=== PATIENT | male | born 1940 | race African-American/Black ===

== ENCOUNTER 2016-05-24 15:14 | Emergency (ER) | payer BC ==
[~2016-05-24] VITALS: Ht 180.3 cm; Wt 123.0 kg
[~2016-05-24 15:14] MED LIST: ALLO300 PO; APIX5 PO; ASPI81 PO; B COTAB3 PO; CALTTAB5 PO; CHEL50TA PO; CLON.3T TD; CO Q100C9 PO; CRES10TA PO; FISH120014 PO; FURO40TA PO; GARL500C2 PO; GLIM1TAB PO; HUMALOGP SQ; INSU1INJ14 SQ; LISI-366 PO; NEBI20 PO; NEXI40CA PO; PARI1CAP PO; TAB-TAB PO; TAMS0.4C67 PO; [UNRECOGNIZED DRUG - CODE] PO
[2016-05-24 15:19] VITALS: BP 158/77; PULSE 69; RESP 18; TEMP 98.2; O2SAT 94
--- NOTE | 2016-05-24 15:29 | PD ---
HPI . congestion, cold, cough x 1 month, worse over 2 days Chief Complaint: Cold / Flu Symptoms Time Seen by Provider: 15:28 Travel History International Travel<30 days: No Contact w/Intl Traveler<30days: No Traveled to known affect area: No History of Present Illness HPI 76-year-old male with multiple medical problems including hypertension, diabetes , hyperlipidemia, chronic kidney disease, GERD, recent pulmonary emboli now on Eliquis here with complaints of chest, cold and congestion for over a month. Patient tells me that he has had intermittent cold symptoms for over one month, but over the last 2 days his congestion has worsened. He does experience shortness of breath occasionally, but with the congestion it is more frequent and he decided to come to the emergency for further evaluation. He reports that his has also had the same symptoms and was placed on antibiotics. He denies any fever or chills. He is compliant with his anticoagulant. He is followed by his PCP. He was recently seen in the hospital for chest pain and workup did not reveal any new cardiac findings. There was some mention about a repeat CTA, however it was not done. Instead his Eliquis dose was increased. He denies any recent travel and has since seen his PCP. 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 He does have a PCP, gizzard skin remover, and moisture machine tender. PFSH Past Medical History Hx Anticoagulant Therapy: Yes (ELIQUIS AND BABY ASA) Arthritis: Yes (in knees pt states he had gout) Asthma: No Anxiety: No Depression: No Heart Rhythm Problems: Yes (HEART MURMUR) Cancer: No Cardiovascular Problems: Yes (HTN) High Cholesterol: Yes Chest Pain: No Congestive Heart Failure: No COPD: No Diabetes: Yes Diminished Hearing: Yes ([place] BAND) Endocrine: Yes Gastrointestinal Disorders: Yes GERD: Yes Gout: Yes Genitourinary: Yes (RENAL INSUFFICIENCY stage 3) Hiatal Hernia: No Hypertension: Yes Immune Disorder: No Implanted Vascular Access Dvce: No Kidney Stones: No Musculoskeletal: Yes Neurologic: Yes Psychiatric: No Reproductive: No Respiratory: Yes Integumentary: Yes (gout/arthritis) Renal Failure: No Shingles: Yes Sleep Apnea: No Thyroid Disease: No Triglycerides - High: Yes Ulcer: Yes (bleeding ulcer) Past Surgical History Abdominal Surgery: Yes (APPENDECTOMY) AICD: No Appendectomy: Yes Arteriovenous Shunt: No Cardiac Surgery: No Ear Surgery: No Endocrine Surgery: No Eye Surgery: No Genitourinary Surgery: Yes (vascectomy) Gynecologic Surgery: No Insulin Pump: No Joint Replacement: No Neurologic Surgery: No Oral Surgery: No Pacemaker: No Thoracic Surgery: No Other Surgery: Yes (ENDOSCOPY FOR BLEEDING ULCERS) Social History Alcohol Use: Yes ("VERY RARELY") Tobacco Use: No (QUIT AGE 45 "NOT A HEAVY SMOKER") Substance Use: No Allergies-Medications (Allergen,Severity, Reaction): Coded Allergies: No Known Allergies (Unverified , 05/24/16) Reported Meds & Prescriptions Reported Meds & Active Scripts Active Eliquis (Apixaban) 5 Mg Tab 5 Mg PO BID Reported Tresiba Flextouch (Insulin Degludec) 100 Unit/Ml Inj 120 SQ HS Zinc (Zinc Gluconate) 50 Mg Tab 50 Mg PO HS Calcium (Calcium Carbonate) 600 Mg Tab 600 Mg PO HS Glimepiride 1 Mg Tab 1 Mg PO DAILY Bystolic 20 Mg Tab (Nebivolol) 20 Mg Tab 20 Mg PO DAILY Garlic Oil 500 (Garlic) 500 Mg Cap 1,000 Mg PO DAILY Fish Oil ([place]-3 Fatty Acids) 1,200 Mg Cap PO BID Levitra (Vardenafil HCl) 2.5 Mg Tab 0 PO DIRECTED PRN UNKNOWN DOSE Humalog 10 ml vial (Insulin Human Lispro) 100 Units/Ml Inj 13 Units SQ TIDAC Co Q 10 (Coenzyme Q10) 100 Mg Cap 100 Mg PO DAILY B Complex (Vitamin B Complex) Tab 1 Cap PO DAILY Aspirin 81 Mg Tab 81 Mg PO DAILY Multivitamin (Multivitamins) 1 Tab Tab 1 Tab PO DAILY Nexium (Esomeprazole Magnesium) 40 Mg Cap 40 Mg PO DAILY Crestor (Rosuvastatin Calcium) 10 Mg Tab 10 Mg PO DAILY Zyloprim 300 Mg Tab (Allopurinol) 300 Mg Tab 100 Mg PO DAILY Lisinopril 40 mg (Lisinopril) 40 Mg Tab 40 Mg PO BID Furosemide 40 Mg Tab 40 Mg PO DAILY [id number] (Clonidine Hcl) 0.3 Mg/24 Hr Dis 0.3 Mg TD WEEKLY Review of Systems General / Constitutional: No: Fever Eyes: No: Visual changes HENT: Positive: Congestion, No: Headaches Cardiovascular: No: Chest Pain or Discomfort Respiratory: Positive: Shortness of Breath Gastrointestinal: No: Abdominal Pain Genitourinary: No: Dysuria Musculoskeletal: No: Pain Skin: No Rash Neurologic: No: Weakness Psychiatric: No: Depression Endocrine: No: Polydipsia Hematologic/Lymphatic: No: Easy Bruising Physical Exam Narrative GENERAL: AAO x 3, no acute distress, Well-nourished, well-developed patient. SKIN: Warm and dry. No visible rashes or bruising. HEAD: Normocephalic and atraumatic. EYES: No scleral icterus. No injection or drainage. ENT: No nasal drainage noted. Mucous membranes pink. Airway patent. No posterior pharynx erythema, exudates or edema. NECK: Supple, trachea midline. No JVD. CARDIOVASCULAR: Regular rate and rhythm without murmurs, gallops, or rubs. RESPIRATORY: Breath sounds equally diminished bilaterally. No accessory muscle use. No rhonchi or rales. No wheezing. GASTROINTESTINAL: Abdomen soft, non-tender, nondistended. EXTREMITIES: No cyanosis. B/L edema in LE trace. stasis dermatitis in LE. BACK: Nontender without obvious deformity. No CVA tenderness. PSYCH: AAO x 3, normal affect. Data Data Last Documented VS Vital Signs Date Time Temp Pulse Resp B/P Pulse Ox O2 Delivery O2 Flow Rate FiO2 05/24/16 15:19 98.2 69 18 158/77 94 Orders Chest, Single Ap (05/24/16 15:33) Basic Metabolic Panel (Bmp) (05/24/16 15:33) Complete Blood Count With Diff (05/24/16 15:33) Iv Access Insert/Monitor (05/24/16 15:33) Sodium Chloride 0.9% Flush (Ns Flush) (05/24/16 15:45) Influenzae A/B Antigen (05/24/16 15:33) Coag Profile (05/24/16 15:33) Ct Pulmonary Angiogram (05/24/16 16:25) Sodium Chlorid 0.9% 500 Ml Inj (Ns 500 M (05/24/16 17:00) Iohexol 350 Inj (Omnipaque 350 Inj) (05/24/16 17:10) Labs Laboratory Tests Test 05/24/16 15:50 White Blood Count 7.6 TH/MM3 Red Blood Count 4.83 MIL/MM3 Hemoglobin 14.9 GM/DL Hematocrit 46.0 % Mean Corpuscular Volume 95.2 FL Mean Corpuscular Hemoglobin 30.7 PG Mean Corpuscular Hemoglobin 32.3 % Concent Red Cell Distribution Width 15.3 % Platelet Count 164 TH/MM3 Mean Platelet Volume 9.0 FL Neutrophils (%) (Auto) 68.2 % Lymphocytes (%) (Auto) 14.0 % Monocytes (%) (Auto) 10.5 % Eosinophils (%) (Auto) 6.3 % Basophils (%) (Auto) 1.0 % Neutrophils # (Auto) 5.1 TH/MM3 Lymphocytes # (Auto) 1.1 TH/MM3 Monocytes # (Auto) 0.8 TH/MM3 Eosinophils # (Auto) 0.5 TH/MM3 Basophils # (Auto) 0.1 TH/MM3 CBC Comment DIFF FINAL Differential Comment Prothrombin Time 12.0 SEC Prothromb Time International 1.1 RATIO Ratio Activated Partial 29.1 SEC Thromboplast Time Sodium Level 143 MEQ/L Potassium Level 4.4 MEQ/L Chloride Level 105 MEQ/L Carbon Dioxide Level 31.1 MEQ/L Anion Gap 7 MEQ/L Blood Urea Nitrogen 30 MG/DL Creatinine 1.80 MG/DL Estimat Glomerular Filtration 45 ML/MIN Rate Random Glucose 182 MG/DL Calcium Level 8.7 MG/DL MDM Medical Decision Making Medical Screen Exam Complete: Yes Emergency Medical Condition: Yes Medical Record Reviewed: Yes Differential Diagnosis URI, PNA, recurrent PE Narrative Course 76-year-old male with multiple medical problems including hypertension, diabetes , hyperlipidemia, chronic kidney disease, GERD, recent pulmonary emboli now on Eliquis here with complaints of chest, cold and congestion for over a month. Patient tells me that he has had intermittent cold symptoms for over one month, but over the last 2 days his congestion has worsened. He does experience shortness of breath occasionally, but with the congestion it is more frequent and he decided to come to the emergency for further evaluation. He reports that his has also had the same symptoms and was placed on antibiotics. He denies any fever or chills. He is compliant with his anticoagulant. He is followed by his PCP. He was recently seen in the hospital for chest pain and workup did not reveal any new cardiac findings. There was some mention about a repeat CTA, however it was not done. Instead his Eliquis dose was increased. He denies any recent travel and has since seen his PCP. 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 He does have a PCP, gizzard skin remover, and moisture machine tender. Patient seen and examined. Case discussed with Dr. Hoffman, who also examined the patient. Workup in progress. Labs ordered along [facility] CXR and influenza testing. Last 24 hours Impressions Chest X-Ray 05/24/16 1533 Signed Impressions: Service Date/Time: Tuesday, May 24, 2016 15:48 - CONCLUSION: 1. Borderline, wall compensated heart. 2. Minimal bibasilar atelectatic changes with stable elevation of the right hemidiaphragm. 3. Central pulmonary arteries are mildly prominent but stable possibly representing some degree of pulmonary hypertension. Tyrese Dutton MD Laboratory Tests Test 05/24/16 15:50 White Blood Count 7.6 TH/MM3 Red Blood Count 4.83 MIL/MM3 Hemoglobin 14.9 GM/DL Hematocrit 46.0 % Mean Corpuscular Volume 95.2 FL Mean Corpuscular Hemoglobin 30.7 PG Mean Corpuscular Hemoglobin 32.3 % Concent Red Cell Distribution Width 15.3 % Platelet Count 164 TH/MM3 Mean Platelet Volume 9.0 FL Neutrophils (%) (Auto) 68.2 % Lymphocytes (%) (Auto) 14.0 % Monocytes (%) (Auto) 10.5 % Eosinophils (%) (Auto) 6.3 % Basophils (%) (Auto) 1.0 % Neutrophils # (Auto) 5.1 TH/MM3 Lymphocytes # (Auto) 1.1 TH/MM3 Monocytes # (Auto) 0.8 TH/MM3 Eosinophils # (Auto) 0.5 TH/MM3 Basophils # (Auto) 0.1 TH/MM3 CBC Comment DIFF FINAL Differential Comment Prothrombin Time 12.0 SEC Prothromb Time International 1.1 RATIO Ratio Activated Partial 29.1 SEC Thromboplast Time Sodium Level 143 MEQ/L Potassium Level 4.4 MEQ/L Chloride Level 105 MEQ/L Carbon Dioxide Level 31.1 MEQ/L Anion Gap 7 MEQ/L Blood Urea Nitrogen 30 MG/DL Creatinine 1.80 MG/DL Estimat Glomerular Filtration 45 ML/MIN Rate Random Glucose 182 MG/DL Calcium Level 8.7 MG/DL CT angio negative for PE discussed with Dr. Hoffman, symptomatic treatment for viral syndrome. No Rx drugs needed as workup is negative. Recommend f/u with PCP. Patient verbalized understanding of instructions, questions were answered, and thanked me for their care. I advised them if their condition worsens, please return to the nearest emergency room for further care. Diagnosis Primary Impression: Viral infection Patient Instructions: General Instructions Additional Instructions: Please return to emergency department if your symptoms return or worsen. Follow up with your primary care provider. Take medications as prescribed. Tylenol or Motrin as needed for fever and pain. You can use Claritin or Zyrtec as needed for nasal congestion. Please follow-up with your primary care provider in the next 3-5 days. Med/Other Pt SpecificInfo: No Change to Meds Disposition: 01 DISCHARGE HOME Condition: Stable Yesi Singh May 24, 2016 15:28
[2016-05-24] MEDS ORDERED: SODIUM CHLORIDE 0.9% FLUSH 10 ML FLUSH IVF PRN (15:45)
--- NOTE | 2016-05-24 16:10 | RADHPO ---
EXAM DATE/TIME: 05/24/2016 15:48 [facility] COMPARISON: CHEST SINGLE AP, September 07, 2015, 9:55. INDICATIONS : Shortness of breath, chest congestion for 2 days MEDICAL HISTORY : None. SURGICAL HISTORY : None. ENCOUNTER: Initial ACUITY: 2 days PAIN SCORE: 0/10 LOCATION: Bilateral chest FINDINGS: A single view of the chest demonstrates stable elevation of the right hemidiaphragm. Minimal bibasila r atelectatic changes. Lungs otherwise clear. Heart size is borderline prominent but compensated. The re is some prominence of the central pulmonary arteries possibly representing some degree of pulmonar y hypertension. Osseous structures are intact with some degenerative spurring of the dorsal spine. CONCLUSION: 1. Borderline, wall compensated heart. 2. Minimal bibasilar atelectatic changes with stable elevation of the right hemidiaphragm. 3. Central pulmonary arteries are mildly prominent but stable possibly representing some degree of pu lmonary hypertension. Tyrese Dutton MD on May 24, 2016 at 16:05 Board Certified Radiologist. This report was verified electronically.
[2016-05-24 16:12] LABS: APTT (PATIENT) 29.1 SEC (24.3-30.1); INTERNATIONAL NORMALIZED RATIO 1.1 RATIO
[2016-05-24 16:26] LABS: AUTOMATED NEUTROPHIL # 5.1 TH/MM3 (1.8-7.7); BASOPHIL # 0.1 TH/MM3 (0-0.2); EOSINOPHIL # 0.5 TH/MM3 (0-0.4); EOSINOPHIL % 6.3 % (0.0-4.0); HEMO FLAGS DIFF FINAL; LYMPHOCYTE # 1.1 TH/MM3 (1.0-4.8); MEAN CELL VOLUME 95.2 FL (80.0-100.0); MEAN CORPUSCULAR HEMOGLOBIN 30.7 PG (27.0-34.0); MEAN CORPUSCULAR HGB CONC 32.3 % (32.0-36.0); MONO % 10.5 % (0.0-8.0); NEUT % 68.2 % (16.0-70.0); PLATELET COUNT 164 TH/MM3 (150-450); RED BLOOD COUNT 4.83 MIL/MM3 (4.50-5.90); RED CELL DISTRIBUTION WIDTH 15.3 % (11.6-17.2); WHITE BLOOD COUNT 7.6 TH/MM3 (4.0-11.0)
[2016-05-24 16:44] LABS: BICARBONATE 31.1 MEQ/L (21.0-32.0); POTASSIUM 4.4 MEQ/L (3.5-5.1)
[2016-05-24] MEDS ORDERED: SODIUM CHLORID 0.9% 500 ML INJ 500 ML IV ONE (17:00)
[2016-05-24] MEDS ORDERED: IOHEXOL 350 MG/ML 10 ML VIAL (for RAD DIAG) IV ONE (17:10)
--- NOTE | 2016-05-24 17:20 | RADHPO ---
EXAM DATE/TIME: 05/24/2016 16:56 [facility] COMPARISON: CT PULMONARY ANGIOGRAM, August 22, 2015, 21:17. INDICATIONS : Shortness of breath with congestion. IV CONTRAST: 65 cc Omnipaque 350 (iohexol) IV RADIATION DOSE: 21.57 CTDIvol (mGy) MEDICAL HISTORY : Hypertension. Pulmonary embolism. SURGICAL HISTORY : None. ENCOUNTER: Initial ACUITY: 2 days PAIN SCALE: 0/10 LOCATION: chest TECHNIQUE: Volumetric scanning of the chest was performed using a pulmonary embolism protocol MIP images were re constructed. Using automated exposure control and adjustment of the mA and/or kV according to patien t size, radiation dose was kept as low as reasonably achievable to obtain optimal diagnostic quality images. FINDINGS: PULMONARY ARTERIES: No filling defects are seen in the pulmonary arteries through the segmental level. LUNGS: There is elevation of the right diaphragm with atelectasis again noted in the right lung base. No chuck picious mass or nodule. PLEURAE: There is no pleural thickening or pleural effusion. MEDIASTINUM: There is good visualization of the great vessels of the middle mediastinum. No evidence of mediastin al or hilar adenopathy/mass. Coronary artery calcifications. MUSCULOSKELETAL: Within normal limits for patient age. MISCELLANEOUS: Gallstones CONCLUSION: No evidence of pulmonary embolism Kvng Munoz MD on May 24, 2016 at 17:13 Board Certified Radiologist. This report was verified electronically.
[2016-05-24 17:46] VITALS: BP 152/76; PULSE 58; RESP 22; O2SAT 92
== END 2016-05-24 18:08 | disposition home or self-care (01) ==
LOC: PHEFT 15:14
DX: B34.9 Viral infection, unspecified (principal); R06.02 Shortness of breath; I12.9 Hypertensive chronic kidney disease with stage 1 through stage 4 chronic kidney disease, or unspecified chronic kidney disease; N18.9 Chronic kidney disease, unspecified; E11.9 Type 2 diabetes mellitus without complications; E78.5 Hyperlipidemia, unspecified; E78.00 Pure hypercholesterolemia, unspecified; K21.9 Gastro-esophageal reflux disease without esophagitis; Z86.711 Personal history of pulmonary embolism; Z79.01 Long term (current) use of anticoagulants; Z87.891 Personal history of nicotine dependence
CPT/HCPCS: 71010; 71275; 80048; 85025; 85610; 85730; 87804; 96360; 99284; J7040; Q9967

== ENCOUNTER 2017-02-19 13:08 | Inpatient (IN) | payer BC ==
[~2017-02-19] VITALS: Ht 180.3 cm; Wt 124.5 kg
[~2017-02-19 13:08] MED LIST changes: -TAMS0.4C67 PO
[2017-02-19 13:14] VITALS: BP 132/61; PULSE 60; RESP 16; TEMP 97.9; O2SAT 86
[2017-02-19 13:40] VITALS: O2SAT 94
[2017-02-19] MEDS ORDERED: SODIUM CHLORIDE 0.9% FLUSH 10 ML FLUSH IVF PRN (13:45)
--- NOTE | 2017-02-19 13:46 | PD ---
HPI Chief Complaint: Respiratory Symptoms Time Seen by Provider: 13:25 Travel History International Travel<30 days: No Contact w/Intl Traveler<30days: No Traveled to known affect area: No History of Present Illness HPI This is a 76-year-old male who presents to the emergency department with shortness of breath that started earlier this week, constant, moderate severity , worse with exertion, improved with rest associated with some wheezing and nonproductive cough. He has a history of a heart valve problem for which she follows with Dr. Ortega. He also recently traveled in a car from [place]. He denies any fevers or chills. PFSH Past Medical History Hx Anticoagulant Therapy: Yes Arthritis: Yes Asthma: No Anxiety: No Depression: No Heart Rhythm Problems: Yes (HEART MURMUR) Cancer: No Cardiovascular Problems: Yes (CHF) High Cholesterol: Yes Chest Pain: No Congestive Heart Failure: No COPD: No Diabetes: Yes Diminished Hearing: Yes ([place]) Endocrine: Yes Gastrointestinal Disorders: Yes GERD: Yes Gout: Yes Genitourinary: Yes (RENAL INSUFFICIENCY stage 3) Hiatal Hernia: No Hypertension: Yes Immune Disorder: No Implanted Vascular Access Dvce: No Kidney Stones: No Musculoskeletal: Yes Neurologic: Yes Psychiatric: No Reproductive: No Respiratory: Yes Integumentary: Yes (gout/arthritis) Renal Failure: Yes (ckd stage 3) Shingles: Yes Sleep Apnea: No Thyroid Disease: Yes Triglycerides - High: Yes Ulcer: Yes ?: Not Past Surgical History Abdominal Surgery: Yes (APPENDECTOMY) AICD: No Appendectomy: Yes Arteriovenous Shunt: No Cardiac Surgery: No Ear Surgery: No Endocrine Surgery: No Eye Surgery: No Genitourinary Surgery: Yes (vascectomy) Gynecologic Surgery: No Insulin Pump: No Joint Replacement: No Neurologic Surgery: No Oral Surgery: No Pacemaker: No Thoracic Surgery: No Other Surgery: Yes (ENDOSCOPY FOR BLEEDING ULCERS) Social History Alcohol Use: Yes ("VERY RARELY") Tobacco Use: No (QUIT AGE 45 "NOT A HEAVY SMOKER") Substance Use: No Allergies-Medications (Allergen,Severity, Reaction): Coded Allergies: No Known Allergies (Unverified , 05/24/16) Reported Meds & Prescriptions Reported Meds & Active Scripts Active Reported Coq-10 (Coenzyme Q10 (Ubidecarenone)) 50 Mg Cap 1 Tab PO DAILY Vitamin B Complex (B-Complex Vitamins) 1 Tab 1 Tab PO DAILY Zinc Gluconate 50 Mg Tab 50 Mg PO DAILY [place]-3 Fish Oil/Vitamin (Fish Oil-Cholecalciferol) 1,000-1,000 Mg Cap 1 Cap PO BID Multiple Vitamin 1 Tab 1 Tab PO DAILY Cialis (Tadalafil) 10 Mg Tab 10 Mg PO DAILY PRN Do not exceed 1 dose/day. Crestor (Rosuvastatin Calcium) 10 Mg Tab 10 Mg PO DAILY Terazosin (Terazosin HCl) 10 Mg Cap 10 Mg PO BID Allopurinol 100 Mg Tab 100 Mg PO DAILY Humalog Kwikpen Pen Inj (Insulin Lispro (Human) Inj) 300 Unit/3 Ml Pen 13 Units SQ TID Tresiba Flextouch Pen Inj (Insulin Degludec Inj) 300 unit/3 ML Pen 120 Mg SQ HS Glimepiride 2 Mg Tab 2 Mg PO DAILY Take with breakfast or first main meal Eliquis (Apixaban) 5 Mg Tab 5 Mg PO BID Bystolic (Nebivolol) 20 Mg Tab 20 Mg PO DAILY Lisinopril 40 Mg Tab 40 Mg PO DAILY Lasix (Furosemide) 40 Mg Tab 40 Mg PO DAILY [id number] 168 HR Patch (Clonidine) 0.3 Mg/24 Hr Patch 1 Patch T-DERMAL Q7D Review of Systems Except as stated in HPI: all other systems reviewed are Neg Physical Exam Narrative GENERAL: Cyanotic, otherwise awake and alert SKIN: Focused skin assessment warm and dry. HEAD: Atraumatic. Normocephalic. EYES: Pupils equal and round. No injection or drainage. ENT: Moist mucous membranes NECK: Trachea midline. CARDIOVASCULAR: Regular rate and rhythm. No murmur appreciated. RESPIRATORY: Mild wheezing in the upper legs mejia with Rales in the bilateral lower lung mejia. GASTROINTESTINAL: Abdomen soft, non-tender, nondistended. MUSCULOSKELETAL: No obvious deformities. NEUROLOGICAL: Awake and alert. No obvious cranial nerve deficits. Moving all extremities. PSYCHIATRIC: Appropriate mood and affect; insight and judgment normal. Data Data Last Documented VS Vital Signs Date Time Temp Pulse Resp B/P (MAP) Pulse Ox O2 Delivery O2 Flow Rate FiO2 02/19/17 13:40 94 Nasal Cannula 2.00 02/19/17 13:40 50 02/19/17 13:14 97.9 16 132/61 (84) Orders Orders Complete Blood Count With Diff (02/19/17 13:34) Comprehensive Metabolic Panel (02/19/17 13:34) B-Type Natriuretic Peptide (02/19/17 13:34) D-Dimer (02/19/17 13:34) Act Partial Throm Time (Ptt) (02/19/17 13:34) Prothrombin Time / Inr (Pt) (02/19/17 13:34) Troponin I (02/19/17 13:34) Iv Access Insert/Monitor (02/19/17 13:34) Ecg Monitoring (02/19/17 13:34) Oximetry (02/19/17 13:34) Oxygen Administration (02/19/17 13:34) Chest, Single Ap (02/19/17 13:34) Sodium Chloride 0.9% Flush (Ns Flush) (02/19/17 13:45) Furosemide Inj (Lasix Inj) (02/19/17 14:45) Admit Order (Ed Use Only) (02/19/17 14:46) Labs Laboratory Tests Test 02/19/17 13:50 White Blood Count 5.6 TH/MM3 Red Blood Count 4.72 MIL/MM3 Hemoglobin 14.3 GM/DL Hematocrit 44.2 % Mean Corpuscular Volume 93.7 FL Mean Corpuscular Hemoglobin 30.3 PG Mean Corpuscular Hemoglobin Concent 32.3 % Red Cell Distribution Width 14.3 % Platelet Count 163 TH/MM3 Mean Platelet Volume 7.9 FL Neutrophils (%) (Auto) 60.2 % Lymphocytes (%) (Auto) 21.3 % Monocytes (%) (Auto) 12.0 % Eosinophils (%) (Auto) 5.7 % Basophils (%) (Auto) 0.8 % Neutrophils # (Auto) 3.4 TH/MM3 Lymphocytes # (Auto) 1.2 TH/MM3 Monocytes # (Auto) 0.7 TH/MM3 Eosinophils # (Auto) 0.3 TH/MM3 Basophils # (Auto) 0.0 TH/MM3 CBC Comment DIFF FINAL Differential Comment Prothrombin Time 12.3 SEC Prothromb Time International Ratio 1.2 RATIO Activated Partial Thromboplast Time 29.1 SEC D-Dimer Quantitative (PE/DVT) 0.39 MG/L FEU Blood Urea Nitrogen 19 MG/DL Creatinine 1.40 MG/DL Random Glucose 132 MG/DL Total Protein 6.5 GM/DL Albumin 2.7 GM/DL Calcium Level 8.3 MG/DL Alkaline Phosphatase 110 U/L Aspartate Amino Transf (AST/SGOT) 29 U/L Alanine Aminotransferase (ALT/SGPT) 32 U/L Total Bilirubin 0.4 MG/DL Sodium Level 143 MEQ/L Potassium Level 4.2 MEQ/L Chloride Level 103 MEQ/L Carbon Dioxide Level 36.6 MEQ/L Anion Gap 3 MEQ/L Estimat Glomerular Filtration Rate 60 ML/MIN Troponin I LESS THAN 0.02 NG/ML B-Type Natriuretic Peptide 136 PG/ML MDM Medical Decision Making Medical Screen Exam Complete: Yes Emergency Medical Condition: Yes Interpretation(s) Afebrile, no tachycardia, normotensive, hypoxic No leukocytosis Renal insufficiency which is chronic BNP is indeterminate Chest x-ray demonstrates mild congestive heart failure with cardiomegaly EKG: Sinus bradycardia with PVCs Differential Diagnosis Congestive heart failure, COPD exacerbation, pulmonary embolism, pneumonia Narrative Course This is a 76-year-old male who presents to the emergency department with increasing exertional dyspnea over the past week associated with a cough. On arrival he was found to be hypoxic with an oxygen saturation of 80-86% on room air. He was placed on supplemental oxygen and he improved. He has evidence of Rales and lower extremity edema on exam. Chest x-ray confirms congestive heart failure. Labs are reassuring. Given his hypoxia I think patient should be admitted for diuresis. Physician Communication Physician Communication Discussed with Dr. De La Cruz Diagnosis Primary Impression: Congestive heart failure Qualified Codes: I50.9 - Heart failure, unspecified Admitting Information Admitting Physician Requests: Admit Alicia Smith MD Feb 19, 2017 13:46
[2017-02-19 14:01] LABS: AUTOMATED NEUTROPHIL # 3.4 TH/MM3 (1.8-7.7); BASOPHIL % 0.8 % (0.0-2.0); EOSINOPHIL # 0.3 TH/MM3 (0-0.4); EOSINOPHIL % 5.7 % (0.0-4.0); HEMATOCRIT 44.2 % (39.0-51.0); HEMO FLAGS DIFF FINAL; LYMPH % 21.3 % (9.0-44.0); LYMPHOCYTE # 1.2 TH/MM3 (1.0-4.8); MEAN CELL VOLUME 93.7 FL (80.0-100.0); MEAN CORPUSCULAR HEMOGLOBIN 30.3 PG (27.0-34.0); MEAN CORPUSCULAR HGB CONC 32.3 % (32.0-36.0); NEUT % 60.2 % (16.0-70.0); PLATELET COUNT 163 TH/MM3 (150-450); RED BLOOD COUNT 4.72 MIL/MM3 (4.50-5.90); RED CELL DISTRIBUTION WIDTH 14.3 % (11.6-17.2); WHITE BLOOD COUNT 5.6 TH/MM3 (4.0-11.0)
[2017-02-19 14:07] LABS: CHLORIDE 103 MEQ/L (98-107); POTASSIUM 4.2 MEQ/L (3.5-5.1); SODIUM (NA) 143 MEQ/L (136-145)
[2017-02-19 14:11] LABS: ANION GAP 3 MEQ/L (5-15); BICARBONATE 36.6 MEQ/L (21.0-32.0); BLOOD UREA NITROGEN 19 MG/DL (7-18)
--- NOTE | 2017-02-19 14:13 | RADRPT ---
EXAM DATE/TIME: 02/19/2017 13:53 [facility] COMPARISON: CHEST SINGLE AP, May 24, 2016, 15:48. INDICATIONS : Short of Breath MEDICAL HISTORY : Hypertension. Pulmonary embolism SURGICAL HISTORY : None. ENCOUNTER: Initial ACUITY: 1 day PAIN SCORE: 0/10 LOCATION: Bilateral chest FINDINGS: Cardia megaly with mild congestive failure without alveolar consolidation, pleural effusion or pneumo thorax. Chronic mild elevation right hemidiaphragm. The portion of the bony skeleton visualized is u nremarkable. CONCLUSION: Mild congestive failure with cardiomegaly. Cardiomegaly stable from comparison study Dez Miranda MD FACR on February 19, 2017 at 14:10 Board Certified Radiologist. This report was verified electronically.
[2017-02-19 14:14] LABS: ALT (GPT) 32 U/L (12-78); AST (GOT) 29 U/L (15-37); GLOMERULAR FILTRATION RATE 60 ML/MIN (>89)
[2017-02-19 14:15] LABS: APTT (PATIENT) 29.1 SEC (24.3-30.1); INTERNATIONAL NORMALIZED RATIO 1.2 RATIO; PROTHROMBIN TIME - PATIENT 12.3 SEC (9.8-11.6)
[2017-02-19] MEDS ORDERED: APIX5TAB PO (14:15)
[2017-02-19] MEDS ORDERED: ASPI81TA23 PO (14:15)
[2017-02-19] MEDS ORDERED: NEBI20 PO (14:15)
[2017-02-19] MEDS ORDERED: MULTTAB67 PO (14:15)
[2017-02-19] MEDS ORDERED: HUMA100I3 SQ (14:15)
[2017-02-19] MEDS ORDERED: OMEGCAP PO (14:15)
[2017-02-19] MEDS ORDERED: INSU1INJ14 SQ (14:15)
[2017-02-19] MEDS ORDERED: ZINC50TA2 PO (14:15)
[2017-02-19] MEDS ORDERED: COQ-50CA2 PO (14:15)
[2017-02-19] MEDS ORDERED: ALLO100T PO (14:15)
[2017-02-19] MEDS ORDERED: CLON.3T T-DERMAL (14:15)
[2017-02-19] MEDS ORDERED: VITATAB11 PO (14:15)
[2017-02-19] MEDS ORDERED: GLIM2TAB PO (14:15)
[2017-02-19] MEDS ORDERED: CIAL10TA PO (14:15)
[2017-02-19] MEDS ORDERED: LISI40TA PO (14:15)
[2017-02-19] MEDS ORDERED: ROSU10 PO (14:15)
[2017-02-19] MEDS ORDERED: TERA10CA3 PO (14:15)
[2017-02-19] MEDS ORDERED: FURO1TAB60 PO (14:15)
[2017-02-19 14:16] LABS: TOTAL BILIRUBIN ADULT 0.4 MG/DL (0.2-1.0)
[2017-02-19 14:17] LABS: ALKALINE PHOSPHATASE 110 U/L (45-117)
[2017-02-19] MEDS ORDERED: FUROSEMIDE 40 MG/4 ML VIAL IV PUSH ONE (14:45)
[2017-02-19] MEDS ORDERED: GLUCAGON 1 MG/ML VIAL OTHER PRN (15:15)
[2017-02-19] MEDS ORDERED: DEXTROSE 50% IN WATER 50 ML VIAL(D50) IV PUSH PRN (15:15)
[2017-02-19] MEDS ORDERED: SODIUM CHLORIDE 0.9% FLUSH 10 ML FLUSH IV FLUSH PRN (15:15)
[2017-02-19 15:33] VITALS: BP 142/73; PULSE 58; RESP 22; O2SAT 93
--- NOTE | 2017-02-19 16:20 | HHI.HP ---
HPI Service [facility] Primary Care Physician Dhruv Guerrero MD Admission Diagnosis Congestive heart failure Diagnoses: Chief Complaint: Increasing shortness of breath and cough Travel History International Travel<30 Days: No Contact w/Intl Traveler <30 Da: No Traveled to Known Affected Are: No History of Present Illness Written by Silvana Boggs, acting as scribe for Dr. De La Cruz on 02/19/17 at 16:07. Mr. Alfaro is a 76-year-old male patient with a known medical history of CHF, HTN, DM and gout who presented to the ED with complaints of increasing shortness of breath and cough x 1 week. Patient states that him and his when up to [place] for a week and arrived back last Sunday when he noticed increasing dyspnea and a dry, nonproductive cough. Patient states that he thought it was just a cold and it would eventually subside with the use of OTC cough aids, with no improvement seen. Patient also mentioned that he was eating an increased amount of fast food while out of town and did not monitor his sodium intake. He did visit the urgent care today and was told to come to the Emergency room. He denies admit to low grade fevers and chills. Denies any chest pain, sore throat, headache, abdominal pain, nausea, vomiting, diarrhea or dysuria. Denies any previous lung disease. Does follow with Dr. Armando, cardiology, for management of his CHF. Does admit to a history of PE, on Eliquis for roughly 6 months now. Review of Systems Constitutional: DENIES: Fever, Chills Eyes: DENIES: Blurred vision, Diplopia Respiratory: COMPLAINS OF: Cough, Shortness of breath, DENIES: Sputum production Cardiovascular: DENIES: Chest pain, Palpitations Gastrointestinal: DENIES: Abdominal pain, Black stools, Bloody stools, Constipation, Diarrhea, Nausea, Vomiting Psychiatric: DENIES: Anxiety Except as stated in HPI: all other systems reviewed are Neg Past Family Social History Past Medical History Arthritis CHF Hyperlipidemia Type 1 diabetes GERD GOUT CKD stage III Hypertension Thyroid disease Past Surgical History Bilateral shoulder x 2 Appendectomy EGD for bleeding ulcer Vasectomy Reported Medications Active Reported Coq-10 (Coenzyme Q10 (Ubidecarenone)) 50 Mg Cap 1 Tab PO DAILY Vitamin B Complex (B-Complex Vitamins) 1 Tab 1 Tab PO DAILY Zinc Gluconate 50 Mg Tab 50 Mg PO DAILY [place]rett-3 Fish Oil/Vitamin (Fish Oil-Cholecalciferol) 1,000-1,000 Mg Cap 1 Cap PO BID Multiple Vitamin 1 Tab 1 Tab PO DAILY Cialis (Tadalafil) 10 Mg Tab 10 Mg PO DAILY PRN Do not exceed 1 dose/day. Crestor (Rosuvastatin Calcium) 10 Mg Tab 10 Mg PO DAILY Terazosin (Terazosin HCl) 10 Mg Cap 10 Mg PO BID Allopurinol 100 Mg Tab 100 Mg PO DAILY Humalog Kwikpen Pen Inj (Insulin Lispro (Human) Inj) 300 Unit/3 Ml Pen 13 Units SQ TID Tresiba Flextouch Pen Inj (Insulin Degludec Inj) 300 unit/3 ML Pen 120 Mg SQ HS Glimepiride 2 Mg Tab 2 Mg PO DAILY Take with breakfast or first main meal Eliquis (Apixaban) 5 Mg Tab 5 Mg PO BID Bystolic (Nebivolol) 20 Mg Tab 20 Mg PO DAILY Lisinopril 40 Mg Tab 40 Mg PO DAILY Lasix (Furosemide) 40 Mg Tab 40 Mg PO DAILY Cduliuiz-Lwo-1 168 HR Patch (Clonidine) 0.3 Mg/24 Hr Patch 1 Patch T-DERMAL Q7D Allergies: Coded Allergies: No Known Allergies (Unverified Allergy, Unknown, 02/19/17) Active Ordered Medications Current Medications Medications (Trade) Dose Ordered Sig/[place] Route Start Time Stop Time Status Last Admin (NS Flush) 2 ml BID IV FLUSH 02/19/17 21:00 (NS Flush) 2 ml UNSCH PRN IV FLUSH 02/19/17 15:15 (Lasix Inj) 40 mg BID@,18 IVP 02/19/17 18:00 (KCl) 20 meq BID PO 02/19/17 21:00 (Coreg) 3.125 mg BID PO 02/19/17 21:00 (Zyloprim) 100 mg DAILY PO 02/20/17 09:00 (Eliquis) 5 mg BID PO 02/19/17 21:00 (Catapres-Tts 0.3 Mg Patch.7d) 1 patch Q7D T-DERMAL 02/19/17 17:00 (Amaryl) 2 mg DAILY PO 02/20/17 09:00 (Hytrin) 10 mg BID PO 02/19/17 21:00 (NovoLOG INJ) 13 units TIDAC SQ 02/19/17 17:00 (Prinivil) 40 mg DAILY PO 02/20/17 09:00 (Bystolic) 20 mg DAILY PO 02/20/17 09:00 (Lipitor) 20 mg DAILY PO 02/20/17 09:00 (D50w (Vial) Inj) 50 ml UNSCH PRN IV PUSH 02/19/17 15:15 (Glucagon Inj) 1 mg UNSCH PRN OTHER 02/19/17 15:15 (NovoLOG SUPPLEMENTAL SCALE) 1 ACHS SLIDING SCALE SQ 02/19/17 17:00 Family History Paternal medical history significant for cardiovascular disease. Brother had prostate cancer. Social History Denies any tobacco use, does admit to previous tobacco use quit at the age of 45. Admits to rare alcohol use. Denies any illicit drug use. Physical Exam Vital Signs Vital Signs Date Time Temp Pulse Resp B/P (MAP) Pulse Ox O2 Delivery O2 Flow Rate FiO2 02/19/17 15:33 58 22 142/73 (96) 93 Nasal Cannula 2.00 02/19/17 13:40 94 Nasal Cannula 2.00 02/19/17 13:40 94 Nasal Cannula 2.00 02/19/17 13:40 50 88 Room Air 02/19/17 13:14 97.9 60 16 132/61 (84) 86 Physical Exam GENERAL: This is a well-nourished, obese male patient, lying in bed on supplemental O2 in no apparent distress. SKIN: No rashes, ecchymoses or lesions. Warm and dry. HEENT: Atraumatic. Normocephalic. Pupils equal round and reactive. Extraocular motions intact. No scleral icterus. No injection or drainage. Nose without bleeding. Airway patent. NECK: Trachea midline. No JVD. Supple. CARDIOVASCULAR: Regular rate and rhythm without murmurs, gallops, or rubs. RESPIRATORY: Clear to auscultation. Breath sounds equal bilaterally. No wheezes , rales, or rhonchi. GASTROINTESTINAL: Abdomen round, firm, active bowel sounds, non-tender. No guarding. MUSCULOSKELETAL: Extremities without clubbing, cyanosis. Bilateral lower extremity edema noted 2+ pitting. DP and pedal pulses present. NEUROLOGICAL: Awake and alert. Cranial nerves II through XII intact. Motor and sensory grossly within normal limits. Five out of 5 muscle strength in all muscle groups. Normal speech. Laboratory Laboratory Tests Test 02/19/17 13:50 White Blood Count 5.6 Red Blood Count 4.72 Hemoglobin 14.3 Hematocrit 44.2 Mean Corpuscular Volume 93.7 Mean Corpuscular Hemoglobin 30.3 Mean Corpuscular Hemoglobin Concent 32.3 Red Cell Distribution Width 14.3 Platelet Count 163 Mean Platelet Volume 7.9 Neutrophils (%) (Auto) 60.2 Lymphocytes (%) (Auto) 21.3 Monocytes (%) (Auto) 12.0 Eosinophils (%) (Auto) 5.7 Basophils (%) (Auto) 0.8 Neutrophils # (Auto) 3.4 Lymphocytes # (Auto) 1.2 Monocytes # (Auto) 0.7 Eosinophils # (Auto) 0.3 Basophils # (Auto) 0.0 CBC Comment DIFF FINAL Differential Comment Prothrombin Time 12.3 Prothromb Time International Ratio 1.2 Activated Partial Thromboplast Time 29.1 D-Dimer Quantitative (PE/DVT) 0.39 Blood Urea Nitrogen 19 Creatinine 1.40 Random Glucose 132 Total Protein 6.5 Albumin 2.7 Calcium Level 8.3 Alkaline Phosphatase 110 Aspartate Amino Transf (AST/SGOT) 29 Alanine Aminotransferase (ALT/SGPT) 32 Total Bilirubin 0.4 Sodium Level 143 Potassium Level 4.2 Chloride Level 103 Carbon Dioxide Level 36.6 Anion Gap 3 Estimat Glomerular Filtration Rate 60 Troponin I LESS THAN 0.02 B-Type Natriuretic Peptide 136 Result Diagram: 02/19/17 1350 02/19/17 1350 Imaging Last Impressions Chest X-Ray 02/19/17 1334 Signed Impressions: Service Date/Time: Sunday, February 19, 2017 13:53 - CONCLUSION: Mild congestive failure with cardiomegaly. Cardiomegaly stable from comparison study Dez Miranda MD FACR Septic Shock Reassessment Septic shock perfusion: reassessment completed Caprini VTE Risk Assessment Caprini VTE Risk Assessment: Mod/High Risk (score >= 2) Caprini Risk Assessment Model Point Value = 1 Point Value = 2 Point Value = 3 Point Value = 5 Age 41-60 Minor surgery BMI > 25 kg/m2 Swollen legs Varicose veins or History of unexplained or recurrent spontaneous Oral contraceptives or hormone replacement Sepsis (< 1 month) Serious lung disease, including pneumonia (< 1 month) Abnormal pulmonary function Acute myocardial infarction Congestive heart failure (< 1 month) History of inflammatory bowel disease Medical patient at bed rest Age 61-74 Arthroscopic surgery Major open surgery (> 45 min) Laparoscopic surgery (> 45 min) Malignancy Confined to bed (> 72 hours) Immobilizing plaster cast Central venous access Age >= 75 History of VTE Family history of VTE Factor V Leiden Prothrombin [id number] Lupus anticoagulant Anticardiolipin antibodies Elevated serum homocysteine Heparin-induced thrombocytopenia Other congenital or acquired thrombophilia Stroke (< 1 month) Elective arthroplasty Hip, pelvis, or leg fracture Acute spinal cord injury (< 1 month) Prophylaxis Regimen Total Risk Factor Score Risk Level Prophylaxis Regimen 0-1 Low Early ambulation 2 Moderate Order ONE of the following: *Sequential Compression Device (SCD) *Heparin 5000 units SQ BID 3-4 Higher Order ONE of the following medications: *Heparin 5000 units SQ TID *Enoxaparin/Lovenox 40 mg SQ daily (WT < 150 kg, CrCl > 30 mL/min) *Enoxaparin/Lovenox 30 mg SQ daily (WT < 150 kg, CrCl > 10-29 mL/min) *Enoxaparin/Lovenox 30 mg SQ BID (WT < 150 kg, CrCl > 30 mL/min) AND/OR *Sequential Compression Device (SCD) 5 or more Highest Order ONE of the following medications: *Heparin 5000 units SQ TID (Preferred with Epidurals) *Enoxaparin/Lovenox 40 mg SQ daily (WT < 150 kg, CrCl > 30 mL/min) *Enoxaparin/Lovenox 30 mg SQ daily (WT < 150 kg, CrCl > 10-29 mL/min) *Enoxaparin/Lovenox 30 mg SQ BID (WT < 150 kg, CrCl > 30 mL/min) AND *Sequential Compression Device (SCD) Assessment and Plan Problem List: (1) Acute on chronic congestive heart failure ICD Code: I50.9 - Heart failure, unspecified Plan: CXR reviewed showing mild congestive heart failure with cardiomegaly. BNP 136. Given Lasix 40 mg IV x 1 in ED. Started on 40 mg IV BID. Start on potassium supplementation. No recent ECHO. Will obtain 2-D ECHO. Follow. CBC reviewed essentially unremarkable. (2) Chronic kidney disease (CKD) ICD Code: N18.9 - Chronic kidney disease, unspecified Plan: Stage III. Follows with Dr. Romero in the outpatient setting. Creatinine 1.4, appears to be patient's baseline. Supportive care. (3) Hypertension ICD Code: I10 - Hypertension Status: Acute Plan: Monitor BP trends. Continue home medications. (4) Hyperlipidemia ICD Code: E78.5 - Hyperlipidemia Status: Acute Plan: Continue home medications. (5) Diabetes mellitus ICD Code: E11.9 - Diabetes mellitus Status: Acute Plan: ACCU checks ACHS. sliding scale insulin, cover as needed. Follow trends. DVT Prophylaxis: SCDs. Eliquis. Code Status Full code. Discussed Condition With Patient and . Physician Certification 2 Midnight Certification Type: Admission for Inpatient Services Order for Inpatient Services The services are ordered in accordance with Medicare regulations or non- Medicare payer requirements, as applicable. In the case of services not specified as inpatient-only, they are appropriately provided as inpatient services in accordance with the 2-midnight benchmark. Estimated LOS (days): 2 2 days is the estimated time the patient will need to remain in the hospital, assuming treatment plan goals are met and no additional complications. Post-Hospital Plan: Home Medical Decision Making Impression and Plan This note was transcribed by eva [[email or web address]]. I, Dr. Liliane De La Cruz personally performed the history, physical exam, and medical decision making; and confirmed the accuracy of the information in the transcribed note. Authenticated by Dr. Liliane De La Cruz on 02/19/17 at 16:21. Silvana Boggs Feb 19, 2017 16:20 Liliane De La Cruz MD Feb 19, 2017 16:21
[2017-02-19 16:49] VITALS: BP 127/64
[2017-02-19] MEDS: cloNIDine HCL 0.3 MG/24 HR PATCH T-DERMAL SCH ×2 (17:00→21:20)
[2017-02-19] MEDS: INSULIN ASPART 1,000 UNITS/10 ML VIAL SQ SCH (17:00)
[2017-02-19] MEDS: INSULIN ASPART SUPPLEMENTAL SCALE SQ SCH ×2 (17:00→20:38)
[2017-02-19] MEDS: FUROSEMIDE 40 MG/4 ML VIAL IVP SCH (18:26)
[2017-02-19 18:36] VITALS: BP 166/74; PULSE 61; RESP 18; TEMP 98; O2SAT 93
[2017-02-19 20:00] VITALS: BP 144/67; PULSE 60; PULSE 61; RESP 18; TEMP 97.4; O2SAT 91
[2017-02-19] MEDS: SODIUM CHLORIDE 0.9% FLUSH 10 ML FLUSH IV FLUSH SCH (20:31)
[2017-02-19] MEDS: TERAZOSIN HCL 5 MG CAP PO SCH (20:39)
[2017-02-19] MEDS: APIXABAN 5 MG TABLET PO SCH (20:39)
[2017-02-19] MEDS: POTASSIUM CHLORIDE 20 MEQ CONTROLLED RELEASE TAB PO SCH (20:40)
[2017-02-19] MEDS: CARVEDILOL 3.125 MG TAB PO SCH (20:40)
[2017-02-20] VITALS: BP 112/59; PULSE 52; RESP 18; TEMP 97.6; O2SAT 96
[2017-02-20 04:00] VITALS: BP 102/51; PULSE 55; RESP 18; TEMP 97.5; O2SAT 94
[2017-02-20 08:00] VITALS: BP 133/65; PULSE 59; RESP 20; TEMP 97.8; O2SAT 93
[2017-02-20] MEDS: INSULIN ASPART 1,000 UNITS/10 ML VIAL SQ SCH ×3 (08:00→17:00)
[2017-02-20] MEDS: INSULIN ASPART SUPPLEMENTAL SCALE SQ SCH ×4 (08:00→21:48)
[2017-02-20] MEDS: TERAZOSIN HCL 5 MG CAP PO SCH ×2 (09:00→21:51)
[2017-02-20] MEDS: CARVEDILOL 3.125 MG TAB PO SCH ×2 (11:52→21:49)
[2017-02-20] MEDS: FUROSEMIDE 40 MG/4 ML VIAL IVP SCH ×2 (11:52→18:00)
[2017-02-20] MEDS: APIXABAN 5 MG TABLET PO SCH ×2 (11:52→21:51)
[2017-02-20] MEDS: POTASSIUM CHLORIDE 20 MEQ CONTROLLED RELEASE TAB PO SCH ×2 (11:52→21:52)
[2017-02-20] MEDS: SODIUM CHLORIDE 0.9% FLUSH 10 ML FLUSH IV FLUSH SCH ×2 (11:52→21:49)
[2017-02-20] MEDS: ATORVASTATIN 20 MG TAB PO SCH (11:52)
[2017-02-20] MEDS: ALLOPURINOL 100 MG TAB PO SCH (11:53)
[2017-02-20] MEDS: LISINOPRIL 20 MG TAB PO SCH (11:53)
[2017-02-20] MEDS: NEBIVOLOL 10 MG TAB PO SCH (11:53)
[2017-02-20] MEDS: GLIMEPIRIDE 2 MG TAB PO SCH (11:53)
[2017-02-20 12:00] VITALS: BP 130/65; PULSE 71; RESP 20; TEMP 98.9; O2SAT 91
--- NOTE | 2017-02-20 14:03 | EKG ---
Date Performed: 02/20/2017 Time Performed: 12:49:36 PTAGE: 76 years EKG: Sinus rhythm WITH OCCASIONAL ATRIAL PREMATURE COMPLEXES MARKED RIGHT AXIS DEVIATION RIGHT BUNDLE BRANCH BLOCK Non specific intraventricular conduction delay ABNORMAL ECG No significant change from prior electrocardi ogram. PREVIOUS TRACING : 02/19/2017 15.20 DOCTOR: Ruddy Johnson Interpretating Date/Time 02/20/2017 14:01:28
[2017-02-20 16:00] VITALS: BP 129/63; PULSE 52; RESP 20; TEMP 96.3; O2SAT 92
--- NOTE | 2017-02-20 16:06 | HHI.PR ---
Subjective Remarks Patient seen and examined today for follow-up on congestive heart failure, new onset atrial fibrillation. Patient states that he still having orthopnea. He states that he breathes better when he is sitting up in a chair. Patient denies any chest pain, nausea, vomiting, diaphoresis. Objective Vital Signs Date Time Temp Pulse Resp B/P (MAP) Pulse Ox O2 Delivery O2 Flow Rate FiO2 02/20/17 12:00 98.9 71 20 130/65 (86) 91 02/20/17 08:00 97.8 59 20 133/65 (87) 93 02/20/17 04:00 97.5 55 18 102/51 (68) 94 02/20/17 00:00 97.6 52 18 112/59 (76) 96 02/19/17 20:00 97.4 60 18 144/67 (92) 91 02/19/17 20:00 61 02/19/17 18:36 98.0 61 18 166/74 (104) 93 02/19/17 16:49 95 Nasal Cannula 2.00 02/19/17 16:49 52 18 127/64 (85) 95 I/O 02/19/17 02/19/17 02/19/17 02/20/17 02/20/17 02/20/17 07:00 15:00 23:00 07:00 15:00 23:00 Intake Total 0 ml 150 ml Output Total 200 ml Balance -200 ml 0 ml 150 ml Intake Oral 0 ml 150 ml Output Urine Total 200 ml # Voids 2 1 Result Diagram: 02/19/17 1350 02/19/17 1350 Imaging Last Impressions Chest X-Ray 02/19/17 1334 Signed Impressions: Service Date/Time: Sunday, February 19, 2017 13:53 - CONCLUSION: Mild congestive failure with cardiomegaly. Cardiomegaly stable from comparison study Dez Miranda MD FACR Objective Remarks GENERAL: Well-developed, well-nourished, in no acute distress. alert and orientated HEENT: Head is normocephalic without any lesions or masses noted. Facial features are symmetric. Eyes: Extraocular muscles are intact. Conjunctivae were clear. NECK: Supple without any masses. Trachea midline no deviation. No JVD, n CARDIAC: Irregular rhythm, irregular rate. S1/S2 are heard. 3/6 ejection murmur noted, no gallops or rubs. LUNGS: Wheeze noted bilaterally. No rhonchi or rales. No use of accessory muscles on inspiration or expiration. ABDOMEN: Soft, nontender. Nondistended. Bowel sounds heard in all 4 quadrants. No organomegaly or masses. Negative rebound, negative guarding EXTREMITIES: 2+ pitting edema noted bilateral lower extremities, pulses are equal bilaterally. No cyanosis or clubbing NEUROLOGY: Mood and affect appear appropriate. Cranial nerves II through XII grossly intact. Moving all extremities, speech is clear A/P Assessment and Plan Acute on chronic diastolic congestive heart failure Patient still symptomatic with orthopnea, lower extremity edema Chest x-ray does indicate mild congestive heart failure with cardiomegaly Continue Lasix 40 mg IV twice daily Continue beta ramiro, lisinopril Awaiting echocardiogram Strict input and output, daily weights New onset atrial fibrillation, rate controlled EKG shows occasional premature complexes marked with right axis deviation, right bundle branch block Physical exam indicates irregular rhythm, irregular rate Telemetry indicating atrial fibrillation Rate control this time. 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
--- NOTE | 2017-02-20 16:16 | EKG ---
Date Performed: 02/19/2017 Time Performed: 15:20:21 PTAGE: 76 years EKG: SINUS BRADYCARDIA WITH FIRST DEGREE AV BLOCK WITH OCCASIONAL SUPRAVENTRICULAR PREMATURE COM PLEXES MARKED RIGHT AXIS DEVIATION RIGHT BUNDLE BRANCH BLOCK Inferior infarct-age undeterminate. Sinc e previous tracing, no significant change noted ABNORMAL ECG PREVIOUS TRACING : 09/07/2015 14.48.12 DOCTOR: Lamin Levine Interpretating Date/Time 02/22/2017 07:55:19
--- NOTE | 2017-02-20 17:39 | ECHRPT ---
Indication: Heart failure, unspecified CONCLUSIONS Technically difficult study. In limited views, the ejection fraction appears normal. Moderate concentric left ventricular hypertrophy. BP: / HR: 100 Rhythm: Sinus MEASUREMENTS (Male / Female) Normal Values Technical Quality:Technically difficult study 2D ECHO LV Diastolic Diameter PLAX 6.2 cm 4.2 - 5.9 / 3.9 - 5.3 cm LV Systolic Diameter PLAX 4.7 cm IVS Diastolic Thickness 1.6 cm 0.6 - 1.0 / 0.6 - 0.9 cm LVPW Diastolic Thickness 1.6 cm 0.6 - 1.0 / 0.6 - 0.9 cm LV Relative Wall Thickness 0.5 LVOT Diameter 2.2 cm M-MODE Aortic Root Diameter MM 3.5 cm LA Systolic Diameter MM 5.8 cm LA Ao Ratio MM 1.7 AV Cusp Separation MM 1.7 cm DOPPLER AV Peak Velocity 141.0 cm/s AV Peak Gradient 8.0 mmHg LVOT Peak Velocity 116.0 cm/s LVOT Peak Gradient 5.4 mmHg AV Area Cont Eq pk 3.1 cm Mitral E Point Velocity 86.4 cm/s Mitral A Point Velocity 100.0 cm/s Mitral E to A Ratio 0.9 LV E' Septal Velocity 6.7 cm/s Mitral E to LV E' Septal Ratio 12.8 PV Peak Velocity 157.0 cm/s PV Peak Gradient 9.9 mmHg FINDINGS LEFT VENTRICLE In limited views, the ejection fraction appears normal. There was limited left ventricular wall motion assessment due to poor endocardial visualization. Moderate concentric left ventricular hypertrophy. Normal left ventricular size. RIGHT VENTRICLE The right ventricle was not well visualized. LEFT ATRIUM The left atrial size is mildly dilated. RIGHT ATRIUM The right atrium is not well visualized. ATRIAL SEPTUM The interatrial septum not well visualized. AORTA The aortic root and proximal ascending aorta are not well visualized. MITRAL VALVE Grossly normal mitral valve. No mitral valve regurgitation. No mitral valve stenosis. AORTIC VALVE The aortic valve is not well visualized. TRICUSPID VALVE The tricuspid valve is not well visualized. PULMONARY VALVE The pulmonary valve is not well visualized. Rio Lezama DO (Electronically Signed) Final Date:20 February 2017 17:38
[2017-02-20 20:00] VITALS: BP 131/63; PULSE 56; PULSE 60; RESP 20; TEMP 98.3; O2SAT 93
[2017-02-21] VITALS (7 sets, daily range): BP systolic 103–147; BP diastolic 53–69; PULSE 54–65; RESP 18–20; TEMP 96.2–99.1; O2SAT 92–96
[2017-02-21 07:17] LABS: AUTOMATED NEUTROPHIL # 3.9 TH/MM3 (1.8-7.7); BASOPHIL # 0.2 TH/MM3 (0-0.2); BASOPHIL % 2.4 % (0.0-2.0); EOSINOPHIL # 0.4 TH/MM3 (0-0.4); EOSINOPHIL % 6.5 % (0.0-4.0); LYMPH % 19.2 % (9.0-44.0); LYMPHOCYTE # 1.2 TH/MM3 (1.0-4.8); MEAN CELL VOLUME 96.2 FL (80.0-100.0); MEAN CORPUSCULAR HEMOGLOBIN 29.6 PG (27.0-34.0); MEAN CORPUSCULAR HGB CONC 30.7 % (32.0-36.0); MONO % 9.6 % (0.0-8.0); NEUT % 62.3 % (16.0-70.0); PLATELET COUNT 163 TH/MM3 (150-450); RED BLOOD COUNT 4.88 MIL/MM3 (4.50-5.90); RED CELL DISTRIBUTION WIDTH 15.3 % (11.6-17.2); WHITE BLOOD COUNT 6.3 TH/MM3 (4.0-11.0)
[2017-02-21 07:22] LABS: HEMO FLAGS DIFF FINAL
[2017-02-21 07:28] LABS: POTASSIUM 4.4 MEQ/L (3.5-5.1)
[2017-02-21 07:32] LABS: BICARBONATE 34.7 MEQ/L (21.0-32.0)
[2017-02-21 07:41] LABS: MAGNESIUM 2.2 MG/DL (1.5-2.5)
[2017-02-21] MEDS: INSULIN ASPART 1,000 UNITS/10 ML VIAL SQ SCH ×3 (08:00→17:00)
[2017-02-21] MEDS: INSULIN ASPART SUPPLEMENTAL SCALE SQ SCH ×4 (08:00→20:36)
[2017-02-21] MEDS: SODIUM CHLORIDE 0.9% FLUSH 10 ML FLUSH IV FLUSH SCH ×2 (09:17→20:35)
[2017-02-21] MEDS: FUROSEMIDE 40 MG/4 ML VIAL IVP SCH ×2 (09:18→17:53)
[2017-02-21] MEDS: POTASSIUM CHLORIDE 20 MEQ CONTROLLED RELEASE TAB PO SCH ×2 (09:18→20:35)
[2017-02-21] MEDS: NEBIVOLOL 10 MG TAB PO SCH (09:19)
[2017-02-21] MEDS: GLIMEPIRIDE 2 MG TAB PO SCH (09:19)
[2017-02-21] MEDS: CARVEDILOL 3.125 MG TAB PO SCH ×2 (09:19→20:34)
[2017-02-21] MEDS: LISINOPRIL 20 MG TAB PO SCH (09:19)
[2017-02-21] MEDS: ALLOPURINOL 100 MG TAB PO SCH (09:19)
[2017-02-21] MEDS: APIXABAN 5 MG TABLET PO SCH ×2 (09:20→20:34)
[2017-02-21] MEDS: ATORVASTATIN 20 MG TAB PO SCH (09:20)
[2017-02-21] MEDS: TERAZOSIN HCL 5 MG CAP PO SCH ×2 (09:23→20:34)
--- NOTE | 2017-02-21 11:14 | HHI.FF ---
Face to Face Verification Diagnosis: (1) Acute on chronic congestive heart failure Home Health Nursing Order: Signs/symptoms of disease process CHF education Nursing assessment with vital signs I have seen patient Jeff Alfaro on 02/21/17. My clinical findings support the need for the requested home health care services because: Patient has SOB Deconditioned w/ increased weakness Limited ability to care for self I certify that my clinical findings support that this patient is homebound because: Impaired cognitive ability/safety Ghassan Newman Feb 21, 2017 11:14
[2017-02-21] MEDS ORDERED: SPIRONOLACTONE 25 MG TAB PO ONE (11:15)
--- NOTE | 2017-02-21 14:18 | HHI.PR ---
Subjective Remarks Patient seen and examined today for follow-up on congestive heart failure, new onset atrial fibrillation. Patient states that he still having orthopnea, however improving. Patient denies any chest pain, nausea, vomiting, diaphoresis. Objective Vital Signs Date Time Temp Pulse Resp B/P (MAP) Pulse Ox O2 Delivery O2 Flow Rate FiO2 02/21/17 09:18 96 Nasal Cannula 2.00 02/21/17 09:18 62 02/21/17 08:00 98.2 62 18 02/21/17 04:00 96.2 61 20 146/62 (90) 92 02/21/17 01:40 Nasal Cannula 2.00 02/21/17 00:00 96.9 54 20 147/69 (95) 94 02/20/17 20:00 56 02/20/17 20:00 98.3 60 20 131/63 (85) 93 02/20/17 16:00 96.3 52 20 129/63 (85) 92 I/O 02/20/17 02/20/17 02/20/17 02/21/17 02/21/17 02/21/17 07:00 15:00 23:00 07:00 15:00 23:00 Intake Total 0 ml 1110 ml 240 ml Output Total 800 ml 1100 ml Balance 0 ml 310 ml -860 ml Intake Oral 0 ml 1110 ml 240 ml Output Urine Total 800 ml 1100 ml # Voids 1 3 # Bowel Movements 0 Result Diagram: 02/21/17 0701 02/21/17 0701 Objective Remarks GENERAL: Well-developed, well-nourished, in no acute distress. alert and orientated HEENT: Head is normocephalic without any lesions or masses noted. Facial features are symmetric. Eyes: Extraocular muscles are intact. Conjunctivae were clear. NECK: Supple without any masses. Trachea midline no deviation. No JVD, n CARDIAC: Irregular rhythm, irregular rate. S1/S2 are heard. 3/6 ejection murmur noted, no gallops or rubs. LUNGS: Wheeze noted bilaterally. No rhonchi or rales. No use of accessory muscles on inspiration or expiration. ABDOMEN: Soft, nontender. Nondistended. Bowel sounds heard in all 4 quadrants. No organomegaly or masses. Negative rebound, negative guarding EXTREMITIES: 1+ pitting edema noted bilateral lower extremities, pulses are equal bilaterally. No cyanosis or clubbing NEUROLOGY: Mood and affect appear appropriate. Cranial nerves II through XII grossly intact. Moving all extremities, speech is clear A/P Assessment and Plan Acute on chronic diastolic congestive heart failure Patient still symptomatic with orthopnea, lower extremity edema has improved minimally Chest x-ray does indicate mild congestive heart failure with cardiomegaly Continue Lasix 40 mg IV twice daily Continue beta ramiro, lisinopril Echocardiogram indicates ejection fraction appears normal with left ventricular hypertrophy. Strict input and output, not significant output is one would expect with the increased Lasix. Daily weights does not indicate any weight loss Would try Bumex IV, however unavailable at the hospital at this time Will give spironolactone 25 mg 1 in monitor for output Discuss with patient's heel gouger Dr. Yepez, who indicated the patient has significant pulmonary hypertension which could be related to the patient's clinical condition. Also indicated that he has spoken with the patient repetitively about his CHF and increasing diuretics. However patient is been holding off secondary to his chronic kidney disease. Dr. Yepez recommended that we could give Zaroxolyn 5 mg with the next Lasix dose and see how that affects his diuresis. He states that he is available if needed for consultation New onset atrial fibrillation, rate controlled EKG shows occasional premature complexes marked with right axis deviation, right bundle branch block Physical exam indicates irregular rhythm, irregular rate Telemetry indicating atrial fibrillation Rate control this time. Patient is already anticoagulated with Eliquis Patient will require outpatient follow-up with his heel gouger upon discharge Hypertension, hyperlipidemia, history of pulmonary emboli Home medications continued Chronic kidney disease stage III Continue monitor renal function Avoid nephrotoxins Diabetes Accu-Cheks with sliding scale insulin Glimeprimide continued DVT prevention Patient is on Eliquis Discharge Planning Discharge planning 24-48 hours, after patient clinically improved Ghassan Newman Feb 21, 2017 14:18
[2017-02-21] MEDS ORDERED: METOLAZONE 5 MG TAB PO ONE (18:00)
[2017-02-22] VITALS: BP 114/59; PULSE 60; RESP 20; TEMP 98.4; O2SAT 90
[2017-02-22 03:59] VITALS: O2SAT 95
[2017-02-22 04:00] VITALS: BP 149/67; PULSE 60; RESP 20; TEMP 98.9; O2SAT 95
[2017-02-22 05:37] LABS: POTASSIUM 4.6 MEQ/L (3.5-5.1)
[2017-02-22 05:40] LABS: BICARBONATE 35.4 MEQ/L (21.0-32.0)
[2017-02-22 08:00] VITALS: BP 126/62; PULSE 68; RESP 16; TEMP 97.6; O2SAT 92
[2017-02-22] MEDS: INSULIN ASPART SUPPLEMENTAL SCALE SQ SCH (08:00)
[2017-02-22] MEDS: INSULIN ASPART 1,000 UNITS/10 ML VIAL SQ SCH (08:00)
[2017-02-22] MEDS: SODIUM CHLORIDE 0.9% FLUSH 10 ML FLUSH IV FLUSH SCH (08:08)
--- NOTE | 2017-02-22 08:57 | RADRPT ---
EXAM DATE/TIME: 02/22/2017 07:55 [facility] COMPARISON: CHEST SINGLE AP, February 19, 2017, 13:53. INDICATIONS : Short of breath. MEDICAL HISTORY : Hypertension. Pulmonary embolism SURGICAL HISTORY : None. ENCOUNTER: Subsequent ACUITY: 3 days PAIN SCORE: 0/10 LOCATION: Bilateral chest FINDINGS: A single view of the chest demonstrates the lungs to be symmetrically aerated without evidence of mas s, infiltrate or effusion. The cardiomediastinal contours are unremarkable. Osseous structures are intact. CONCLUSION: Normal examination except for persistent elevation of the right hemidiaphragm. Jeff Moreno MD on February 22, 2017 at 8:54 Board Certified Radiologist. This report was verified electronically.
[2017-02-22] MEDS: POTASSIUM CHLORIDE 20 MEQ CONTROLLED RELEASE TAB PO SCH (09:00)
[2017-02-22] MEDS: FUROSEMIDE 40 MG/4 ML VIAL IVP SCH (09:13)
[2017-02-22] MEDS: APIXABAN 5 MG TABLET PO SCH (09:14)
[2017-02-22] MEDS: ATORVASTATIN 20 MG TAB PO SCH (09:14)
[2017-02-22] MEDS: TERAZOSIN HCL 5 MG CAP PO SCH (09:14)
[2017-02-22] MEDS: NEBIVOLOL 10 MG TAB PO SCH (09:14)
[2017-02-22] MEDS: LISINOPRIL 20 MG TAB PO SCH (09:14)
[2017-02-22] MEDS: CARVEDILOL 3.125 MG TAB PO SCH (09:14)
[2017-02-22] MEDS: ALLOPURINOL 100 MG TAB PO SCH (09:14)
[2017-02-22] MEDS: GLIMEPIRIDE 2 MG TAB PO SCH (09:15)
--- NOTE | 2017-02-22 10:41 | HHI.DS ---
Discharge Summary Admission Date Feb 19, 2017 at 14:47 Discharge Date: Feb 22, 2017 Admitting Diagnosis Congestive heart failure (1) Acute on chronic congestive heart failure ICD Code: I50.9 - Heart failure, unspecified (2) Chronic kidney disease (CKD) ICD Code: N18.9 - Chronic kidney disease, unspecified (3) Hypertension ICD Code: I10 - Hypertension Status: Acute (4) Hyperlipidemia ICD Code: E78.5 - Hyperlipidemia Status: Acute (5) Diabetes mellitus ICD Code: E11.9 - Diabetes mellitus Status: Acute Procedures Echocardiogram: Typically difficult study. Ejection fraction appeared normal, moderate left ventricular hypertrophy Brief History - From Admission Written by Silvana Boggs, acting as scribe for Dr. De La Cruz on 02/19/17 at 16:07. Mr. Alfaro is a 76-year-old male patient with a known medical history of CHF, HTN, DM and gout who presented to the ED with complaints of increasing shortness of breath and cough x 1 week. Patient states that him and his when up to [place] for a week and arrived back last Sunday when he noticed increasing dyspnea and a dry, nonproductive cough. Patient states that he thought it was just a cold and it would eventually subside with the use of OTC cough aids, with no improvement seen. Patient also mentioned that he was eating an increased amount of fast food while out of town and did not monitor his sodium intake. He did visit the urgent care today and was told to come to the Emergency room. He denies admit to low grade fevers and chills. Denies any chest pain, sore throat, headache, abdominal pain, nausea, vomiting, diarrhea or dysuria. Denies any previous lung disease. Does follow with Dr. Armando, cardiology, for management of his CHF. Does admit to a history of PE, on Eliquis for roughly 6 months now. CBC/BMP: 02/21/17 0701 02/22/17 0450 Significant Findings Laboratory Tests Test 02/19/17 13:50 02/21/17 07:01 02/22/17 04:50 Monocytes (%) (Auto) 12.0 % (0.0-8.0) 9.6 % (0.0-8.0) Eosinophils (%) (Auto) 5.7 % (0.0-4.0) 6.5 % (0.0-4.0) Prothrombin Time 12.3 SEC (9.8-11.6) Blood Urea Nitrogen 19 MG/DL (7-18) 30 MG/DL (7-18) 40 MG/DL (7-18) Creatinine 1.40 MG/DL (0.60-1.30) 1.50 MG/DL (0.60-1.30) 1.60 MG/DL (0.60-1.30) Random Glucose 132 MG/DL (74-106) 113 MG/DL (74-106) Albumin 2.7 GM/DL (3.4-5.0) Calcium Level 8.3 MG/DL (8.5-10.1) Carbon Dioxide Level 36.6 MEQ/L (21.0-32.0) 34.7 MEQ/L (21.0-32.0) 35.4 MEQ/L (21.0-32.0) Anion Gap 3 MEQ/L (5-15) Estimat Glomerular Filtration Rate 60 ML/MIN (>89) 55 ML/MIN (>89) 51 ML/MIN (>89) Troponin I LESS THAN 0.02 NG/ML B-Type Natriuretic Peptide 136 PG/ML (0-100) Mean Corpuscular Hemoglobin Concent 30.7 % (32.0-36.0) Basophils (%) (Auto) 2.4 % (0.0-2.0) Imaging Last Impressions Chest X-Ray 02/22/17 0800 Signed Impressions: Service Date/Time: February 07:55 - CONCLUSION: Normal examination except for persistent elevation of the right hemidiaphragm. Jeff Moreno MD Hospital Course 76-year-old male with known history of congestive heart failure, severe pulmonary hypertension, history of pulmonary emboli, hypertension, diabetes, gout who presented to hospital because of shortness of breath and cough. Case was discussed with Dr. Pathak, he indicates that the patient has chronic shortness of breath. Indicates that he has severe pulmonary hypertension which has been exacerbated by pulmonary emboli. Does have chronic diastolic congestive heart failure. He indicated that the patient has been offered additional treatment and outpatient setting, however patient has been resistant due to chronic kidney disease. However the patient been having worsening shortness of breath for proxy one week. He came to emergency department for evaluation and had a BNP of 136, chest x-ray showing mild congestive failure with cardiomegaly. Patient was admitted for acute on chronic diastolic congestive heart failure. Patient started on diuretic Lasix 40 mg twice daily with strict input and output, daily weights. Patient had clinical symptoms of orthopnea, dyspnea on exertion, lower extremity edema. Patient was not compliant with his fluid restriction. Thus there was no significant negative fluid balance. I discussed the case with the patient's vascular surgeon who recommended Zaroxolyn for single dose for improved diuresis. Patient was monitored more closely with his input and output and overnight had a -1290 fluid balance as well as a 3 kg weight loss. Patient is feeling much better this morning. He is able to lay flat at this time. Patient's renal functions were monitored by is in the hospital with mild worsening. Patient remaining a chronic kidney disease stage III. Patient was continued on beta ramiro, YAS inhibitor during his stay in the hospital. Patient was found to have new onset atrial fibrillation with rate controlled. Patient was already on Eliquis for anticoagulation for pulmonary emboli. I counseled patient on the new onset atrial fibrillation. His rate is controlled. He is already on anticoagulation. Notified him that it have to remain on anticoagulation rest of his life for stroke prevention. Patient does understand. Patient does have some confusion is by his medical conditions. Home health care has been requested for nursing care. Congestive heart failure teaching, patient is clinically stable this time. Will plan discharge home with home health care once arranged. Pt Condition on Discharge: Stable Discharge Disposition: Disch w/ Home Health Serv Discharge Time: > 30 minutes Discharge Instructions DIET: Follow Instructions for: Heart Healthy Diet Activities you can perform: Regular-No Restrictions Activities to Avoid: Driving for 24 hrs Follow up Referrals: Cardiology - 1 Week PCP Follow-up - 1 Week Continued Medications: Allopurinol (Allopurinol) 100 Mg Tab 100 MG PO DAILY for Gout, #30 TAB 0 Refills Apixaban (Eliquis) 5 Mg Tab 5 MG PO BID for Blood Clot Prevention, #60 TAB 0 Refills B-Complex Vitamins (Vitamin B Complex) 1 Tab 1 TAB PO DAILY Clonidine 168 HR Patch ([id number] 168 HR Patch) 0.3 Mg/24 Hr Patch 1 PATCH T-DERMAL Q7D for Blood Pressure Management, #4 PATCH 0 Refills Coenzyme Q10 (Ubidecarenone) (Coq-10) 50 Mg Cap 1 TAB PO DAILY Fish Oil-Cholecalciferol (Laurel-3 Fish Oil/Vitamin) 1,000-1,000 Mg Cap 1 CAP PO BID for Nutritional Supplement, CAP 0 Refills Furosemide (Lasix) 40 Mg Tab 40 MG PO DAILY, #30 TAB 0 Refills Glimepiride (Glimepiride) 2 Mg Tab 2 MG PO DAILY for Blood Sugar Management, #30 TAB 0 Refills Take with breakfast or first main meal Insulin Degludec Inj (Tresiba Flextouch Pen Inj) 300 unit/3 ML Pen 120 MG SQ HS for Blood Sugar Management, #15 ML 0 Refills Insulin Lispro (Human) Inj (Humalog Kwikpen Pen Inj) 300 Unit/3 Ml Pen 13 UNITS SQ TID for Blood Sugar Management, PEN 0 Refills Lisinopril (Lisinopril) 40 Mg Tab 40 MG PO DAILY for Blood Pressure Management, #30 TAB 0 Refills Multiple Vitamin (Multiple Vitamin) 1 Tab 1 TAB PO DAILY for Nutritional Supplement, TAB 0 Refills Nebivolol (Bystolic) 20 Mg Tab 20 MG PO DAILY for Blood Pressure Management, #30 TAB 0 Refills Rosuvastatin (Crestor) 10 Mg Tab 10 MG PO DAILY for Cholesterol Management, #30 TAB 0 Refills Tadalafil (Cialis) 10 Mg Tab 10 MG PO DAILY PRN for Erectile Dysfunction, TAB 0 Refills Do not exceed 1 dose/day. Terazosin (Terazosin) 10 Mg Cap 10 MG PO BID, #30 CAP 0 Refills Zinc Gluconate (Zinc Gluconate) 50 Mg Tab 50 MG PO DAILY, TAB Ghassan Newman Feb 22, 2017 10:41
== END 2017-02-22 11:37 | disposition home health service (06) | DRG 291 ==
LOC: PHED 13:08 → PHEDA 14:47 → PH3A 16:48
PROVIDERS: ADMIT Hospitalist; ATTEND Hospitalist
DX: I13.0 Hypertensive heart and chronic kidney disease with heart failure and stage 1 through stage 4 chronic kidney disease, or unspecified chronic kidney disease (principal); I50.33 Acute on chronic diastolic (congestive) heart failure; E10.22 Type 1 diabetes mellitus with diabetic chronic kidney disease; I27.20 Pulmonary hypertension, unspecified; R09.02 Hypoxemia; I48.91 Unspecified atrial fibrillation; N18.3 Chronic kidney disease, stage 3 (moderate); M10.9 Gout, unspecified; E78.5 Hyperlipidemia, unspecified; H91.90 Unspecified hearing loss, unspecified ear; K21.9 Gastro-esophageal reflux disease without esophagitis; I45.10 Unspecified right bundle-branch block; M19.90 Unspecified osteoarthritis, unspecified site; R05 Cough; E07.9 Disorder of thyroid, unspecified; Z79.4 Long term (current) use of insulin; Z79.01 Long term (current) use of anticoagulants; Z86.711 Personal history of pulmonary embolism
CPT/HCPCS: 71010; 80048; 80053; 82948; 83735; 83880; 84484; 85025; 85379; 85610; 85730; 93005; 93306; 99285; J1815; J1940